=== PATIENT | female | born 1980 | race Caucasian/White ===

== ENCOUNTER 2016-11-12 07:56 | Day surgery (SDC) | payer MEDICAID ==
[2016-11-12] MEDS ORDERED: MIDAZOLAM 2 MG/2 ML INJ ONE (09:45)
[2016-11-12] MEDS ORDERED: FENTANYL CITRATE INJ/PF 100 MCG/2 ML AMPUL ONE (09:45)
[2016-11-12] MEDS ORDERED: LIDOCAINE 2% INJ-PF (20 MG/ML) 10 ML AMPUL ONE (09:45)
[2016-11-12] MEDS ORDERED: PROPOFOL INJ 200 MG/20 ML VIAL IV ONE (09:46)
[2016-11-12] MEDS ORDERED: FENTANYL CITRATE INJ/PF 100 MCG/2 ML AMPUL IV PRN (10:21)
[2016-11-12] MEDS ORDERED: PROMETHAZINE HCL INJ 25 MG/1 ML VIAL IV PRN ×2 (10:21)
[2016-11-12] MEDS ORDERED: DIPHENHYDRAMINE HCL 50 MG/ML VIAL IV PRN (10:21)
[2016-11-12] MEDS ORDERED: ONDANSETRON HCL INJ/PF 4 MG/2 ML SDV IV PRN (10:21)
--- NOTE | 2016-11-12 10:45 | Operative Report ---
Operative Report DATE OF SURGERY: 11/12/16 Operative Report: The risks, benefits and alternatives of the procedure including risks of bleeding, patient requiring surgery are explained to the patient detail and informed consent was obtained. The patient was placed in the left lateral decubital position. Timeout was called. Propofol medications administered. A rectal examination was done which did not reveal any masses, tears or fissures. The scope was then gradually advanced all the way to the cecum. Intubation of the terminal ileum was done. Biopsies obtained. Photodocumentation was obtained prep is good. The scope was then sequentially pulled back out the interventions of the colon including the ascending colon, hepatic flexure, transverse colon, splenic flexure, descending colon and finally to the rectosigmoid portions of the colon. Retroflexion maneuver was performed. The risks benefits and alternatives of the procedure explained to the patient in detail and informed consent is obtained. A GIF Olympus video scope was inserted into the patient's mouth and hypopharynx, the esophagus is identified intubated and insufflated, the scope was then advanced through the esophagus stomach and duodenum, retroflexion maneuver is done, the esophagus stomach and first and second portions of the duodenum examined PREOPERATIVE DIAGNOSIS: Epigastric pain. Change of bowel habits POSTOPERATIVE DIAGNOSIS: Random biopsies taken terminal ileum without Crohn's disease. Right side: Biopsies taken to rule out microscopic, lymphocytic, collagenous colitis. Esophagitis versus Ordoñez's biopsies obtained. 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 No anastomotic ulcer. No inflammation noted. OPERATION: Colonoscopy with biopsy. EGD with biopsy SURGEON: MIYA OSPINA ANESTHESIA: LMAC TISSUE REMOVED OR ALTERED: As noted above. COMPLICATIONS: None. ESTIMATED BLOOD LOSS: None. INTRAOPERATIVE FINDINGS: No masses, AVMs, diverticulosis noted in the colon. PROCEDURE: Patient tolerated the procedure well. No immediate postprocedure complications are noted. Patient discharged in good condition. Discharge date 11/12/2016. Discharge diet: Regular. Discharge activity: Regular. 2-3 week follow-up to discuss findings. Patient is instructed to call the office or proceed to the emergency room should there be any further problems or questions. We will wait on biopsies.
[2016-11-12 13:56] VITALS: BP 110/81
== END 2016-11-12 12:15 | disposition home or self-care (01) ==
LOC: OROUT 07:56
PROVIDERS: ATTEND Internal Medicine Gastroenterology
PROC: 0DBB8ZX Excision of Ileum, Via Natural or Artificial Opening Endoscopic, Diagnostic (ICD-10-PCS; 2016-11-12)
PROC: 0DBF8ZX Excision of Right Large Intestine, Via Natural or Artificial Opening Endoscopic, Diagnostic (ICD-10-PCS; 2016-11-12)
PROC: 0DB68ZX Excision of Stomach, Via Natural or Artificial Opening Endoscopic, Diagnostic (ICD-10-PCS; principal; 2016-11-12 09:30)
PROC: 0DB58ZX Excision of Esophagus, Via Natural or Artificial Opening Endoscopic, Diagnostic (ICD-10-PCS; 2016-11-12 09:30)
DX: K29.50 Unspecified chronic gastritis without bleeding (principal); B96.81 Helicobacter pylori [H. pylori] as the cause of diseases classified elsewhere; K62.89 Other specified diseases of anus and rectum; K64.8 Other hemorrhoids; Z98.84 Bariatric surgery status
CPT/HCPCS: 43239; 45380; 81025; 88342 ×2; 88305 ×2; J2250; J3010; J2704; J3490; 740

== ENCOUNTER 2017-11-03 00:21 | Emergency (ER) | payer MEDICAID ==
[2017-11-03] MEDS ORDERED: METOCLOPRAMIDE HCL INJ/PF 10 MG/2 ML SDV IV ONE (00:35)
[2017-11-03] MEDS ORDERED: DIPHENHYDRAMINE HCL 50 MG/ML VIAL IV ONE (00:35)
[2017-11-03] MEDS ORDERED: NORMAL SALINE 1000 ML 1,000 ML IV ONE (00:36)
[2017-11-03] MEDS ORDERED: DOXYCYCLINE HYCLATE 100 MG TABLET PO ONE (00:36)
[2017-11-03] MEDS ORDERED: KETOROLAC TROMETHAMINE INJ/PF 30 MG/1 ML SDV IV ONE (00:36)
--- NOTE | 2017-11-03 00:39 | ER Document Report ---
ED General - General Stated Complaint: BLOOD PRESSURE ISSUES Time Seen by Provider: 11/03/17 00:26 Notes: Patient is a 36-year-old female presents with complaint of a headache. She has a history of migraine headaches and says this feels exactly like her typical headaches. She said there is no difference between this headache in her previous migraines. Patient said the headache is over the frontal part of her head. She says it came on gradually and then became much worse tonight. Some nausea. No vomiting. She has tingling into her fingers and toes which she says is normal with her migraines. She took Maxalt but it did not help. She therefore came to ER. No recent trauma or injuries to her head. Patient second complaint is that she has a small area of redness over the left medial region. She says she has had several times in the past. She says sometimes to resolve on their own and sometimes they do require incision and drainage. She denies any associated fevers. Patient is currently on her menstrual period. She says there is no chance that she could be at this time. TRAVEL OUTSIDE OF THE [place] IN LAST 30 DAYS: No - Related Data Allergies/Adverse Reactions: No Known Allergies Allergy (Unverified 11/12/16 08:32) Past Medical History - Social History Smoking Status: Unknown if Ever Smoked Frequency of alcohol use: None Drug Abuse: None Family History: Reviewed & Not Pertinent - Past Medical History Cardiac Medical History: Denies: Hx Coronary Artery Disease, Hx Heart Attack, Hx Hypertension Pulmonary Medical History: Denies: Hx Asthma, Hx Bronchitis, Hx COPD, Hx Pneumonia Neurological Medical History: Denies: Hx Cerebrovascular Accident, Hx Seizures Musculoskeltal Medical History: Denies Hx Arthritis - Immunizations Hx Diphtheria, Pertussis, Tetanus Vaccination: Yes Review of Systems - Review of Systems Notes: My Normal Review Basic REVIEW OF SYSTEMS: CONSTITUTIONAL : Denies fever, chills, or sweats. Denies recent illness. EENT: Denies eye, ear, throat, or mouth pain or symptoms. Denies nasal or sinus congestion. GASTROINTESTINAL: Denies abdominal pain. some nausea. No vomiting. GENITOURINARY: Denies difficulty urinating, painful urination, burning, frequency, or blood in urine. MUSCULOSKELETAL: Denies neck or back pain or joint pain or swelling. SKIN: Redness and swelling to left gluteal region. NEUROLOGICAL: Denies altered mental status or loss of consciousness. Has a headache. Denies weakness or paralysis or loss of use of either side. Denies problems with gait or speech. Denies sensory or motor loss. ALL OTHER SYSTEMS REVIEWED AND NEGATIVE. Physical Exam - Vital signs Vitals: Temp Pulse Resp BP Pulse Ox 98.4 F 69 18 130/88 H 97 11/03/17 01:08 11/03/17 01:08 11/03/17 01:08 11/03/17 01:08 11/03/17 01:08 - Notes Notes: General Appearance: Well nourished, alert, cooperative, no acute distress, mild to moderate obvious discomfort. Vitals: reviewed, See vital signs table. Head: no swelling or tenderness to the head Eyes: PERRL, EOMI, Conjuctiva clear Mouth: No decreasd moisture Throat: No tonsillar inflammation, No airway obstruction, No lymphadenopathy Lungs: No wheezing, No rales, No rhonci, No accessory muscle use, good air exchange bilaterally. Heart: Normal rate, Regular rythm, No murmur, no rub Abdomen: Normal BS, soft, No rigidity, No abdominal tenderness, No guarding, no rebound, Extremities: strength 5/5 in all extremities, good pulses in all extremities, no swelling or tenderness in the extremities, no edema. Skin: Patient has small area of cellulitis with what appears to be 2 small infected hair follicles. There is no significant induration or fluctuance associated with this area. No drainable abscess at this time. Area of redness approximately 2 cm in diameter. This area is over the very proximal inner left thigh. It does not extend into the genitalia or rectal area. Neuro: speech clear, oriented x 3, normal affect, responds appropriately to questions. Cranial nerves II through XII are intact. Distal sensation intact. Normal gait. Normal coordination of movements. Good strength in all 4 extremities. Course - Re-evaluation Re-evalutation: 11/03/17 02:06 Patient's headache is completely resolved. She feels much improved. Patient does have a small area of cellulitis which appears to be from an infected hair follicle on the left very proximal inner thigh. There is no area of fluctuance or induration. There is no need for incision drainage at this time. I will place her on Bactrim and Keflex. I informed her that if there is any spreading or redness or increasing swelling or any induration she must return to ER immediately. Patient agrees with plan will be discharged home. I do not suspect her headache is related to subarachnoid hemorrhage and that the headache was gradual in onset and not maximal in onset. Also the patient says headache feels exactly like her previous migraines. Dictation of this chart was performed using voice recognition software; therefore, there may be some unintended grammatical errors. 11/03/17 02:12 - Vital Signs Vital signs: Temp Pulse Resp BP Pulse Ox 98.4 F 69 18 130/88 H 97 11/03/17 01:08 11/03/17 01:08 11/03/17 01:08 11/03/17 01:08 11/03/17 01:08 Discharge - Discharge Clinical Impression: Headache Qualifiers: Headache type: unspecified Headache chronicity pattern: acute headache Cellulitis Qualifiers: Site of cellulitis: extremity Site of cellulitis of extremity: lower extremity Laterality: left Qualified Code(s): L03.116 - Cellulitis of left lower limb Condition: Good Disposition: HOME, SELF-CARE Additional Instructions: I have written a prescription for Compazine. If your Maxalt does not relieve your headache, please take 50mg of Benadryl with 1 tablet of the Compazine. Do not drive after taking this medication as it will make you sleepy. I have prescribed you two antibiotics to treat the area of infection that you have on your very inner left thigh. Currently there is no sign of abscess. Should have a low threshold to return to the ER immediately if you have any spreading of redness, any increasing swelling, or any concerns that you have developed an abscess. Please follow-up with a doctor in 2 days to have this area rechecked. Prescriptions: Cephalexin Monohydrate [Keflex 500 mg Capsule] 500 mg PO Q6H 7 Days capsule Prochlorperazine Maleate [Compazine 10 mg Tablet] 10 mg PO ASDIR PRN #10 tablet PRN Reason: Sulfamethoxazole/Trimethoprim [Bactrim Ds Tablet] 1 each PO BID #14 tablet Forms: Return to Work Referrals: GILES DAMIAN MD [Primary Care Provider] - 11/04/17
[2017-11-03 02:35] VITALS: BP 111/75
== END 2017-11-03 02:31 | disposition home or self-care (01) ==
LOC: ER 00:21
DX: L03.116 Cellulitis of left lower limb (principal); R51 Headache
CPT/HCPCS: 99284; 96361; 96374; 96375; J1200; J3490; J1885; J2765; J7030

== ENCOUNTER → 2018-12-05 | Outpatient (CLI) | payer MEDICAID ==
[~2018-12-05] MED LIST: AMINOPHYLLINE INJ/PF 250 MG/10 ML SDV IV ONE; REGADENOSON INJ 0.4 MG/5 ML DISP.SYRIN IV ONE
--- NOTE | 2018-12-06 09:25 | RADIOLOGY REPORT ---
STRESS TEST REPORT PATIENT NAME: JEWEL SIDHU ROOM#: DATE OF SERVICE: 12/05/2018 AGE: 37Y ORDER#: [id number] REFERRING MD: JENNIFER PARKS M.D. PROCEDURE PERFORMED: Rest/stress single isotope Cardiolite SPECT imaging with IV Lexiscan stress and gated SPECT imaging. INDICATION: Chest pain. CLINICAL HISTORY: This is a 37-year-old female with no known coronary artery disease but has cardiac risk factors of hypertension, smoking, and family history of [place]. Current symptomatology includes chest pains. REPORT The patient received IV Lexiscan 0.4 mg infused over 10 seconds. The resting heart rate was 81 bpm and increased to 148 bpm at end infusion due to the patient's severe anxiety. The resting blood pressure was 155/91 and was stable at 121/72 at end infusion. The patient had symptoms of panicking, tachycardia, and shortness of breath. This eventually subsided with the help of IV aminophylline 75 mg. The resting 12-lead EKG showed normal sinus rhythm at 81 bpm, nonspecific ST/T changes in the anterolateral and the anteroseptal leads. At end infusion, increased ST depression was seen in all the leads secondary to her tachycardia. The patient complained of mild chest tightness and shortness of breath, and she was panicking the whole time, long after she was reversed with aminophylline. Myocardial perfusion imaging was performed at rest 60 minutes following the injection of 10.89 mCi of Cardiolite. Ten seconds after the IV Lexiscan injection, the patient was injected with 30.4 mCi of Cardiolite, then flushed. Gated post-stress tomographic imaging was performed 60 minutes after stress injection. SUMMARY OF FINDINGS/IMPRESSION: The overall quality of the study is poor. This is due to the patient's breast prosthesis attenuating the images. Attenuation correction software deployed. The left ventricular cavity is noted to be normal in size on both the rest and stress studies. There is no evidence of abnormal transient ischemic dilatation of the left ventricle. The TID ratio was normal at 1.07. SPECT images showed a small area of mild reversible ischemia in the apex and the basal inferoseptal wall. There is also a small area of mild fixed perfusion defect in the basal anterior wall as well. Gated SPECT imaging showed reduced motion contraction in the anterior septal wall, anterior wall, and basal inferoseptal wall. The left ventricular ejection fraction was calculated to be 51%. IMPRESSION: Myocardial perfusion imaging is abnormal, quality poor due to breast prosthesis attenuation. There is a small area of mild reversible perfusion in the apex and basal inferoseptal wall. There is a small area of mild fixed perfusion defect in the basal anterior wall. Overall left ventricular systolic function is normal at 51% with reduced motion/ contraction noted in the anteroseptal wall, anterior wall, and basal inferoseptal wall. No prior study for comparison. RECOMMENDATION: Begin optimal medical management of the patient's coronary artery risk factors. Trial of sublingual nitroglycerin for her atypical chest pains. Consider cardiac catheterization if chest pain is uncontrolled. This is due to the fact that the patient has significant emotional overlay of her symptoms and that eventual cardiac catheterization will be needed to clarify whether or not she truly has coronary artery disease so that she does not need to make frequent trips to the emergency room for atypical chest pains unnecessarily down the road. INTERPRETING PHYSICIAN: JENNIFER PARKS M.D. /: [id number] TT: [id number] ID: [id number] /: [id number] TD: [id number] JOB: [id number] cc:Marlon GLASS M.D. > MTDD
== END ==
LOC: RAD 06:25
PROVIDERS: ATTEND Internal Medicine Cardiovascular Disease
DX: R07.9 Chest pain, unspecified (principal); I10 Essential (primary) hypertension; F17.200 Nicotine dependence, unspecified, uncomplicated
CPT/HCPCS: 93017; 78452; A9500; J2785; J0280; Q9969

== ENCOUNTER → 2019-01-19 | Outpatient (CLI) | payer MEDICAID ==
[2019-01-19 12:20] LABS: HEMATOCRIT 43.8 % (36.0-47.0); HEMOGLOBIN 14.9 g/dL (12.0-15.5); MEAN CORPUSCULAR HEMOGLOBIN 29.6 pg (27.0-33.4); MEAN CORPUSCULAR VOLUME 87 fl (80-97); PLATELET COUNT 245 10^3/uL (150-450); RED BLOOD COUNT 5.03 10^6/uL (3.72-5.28); RED CELL DISTRIBUTION WIDTH 13.7 % (11.5-14.0)
[2019-01-19 12:34] LABS: INTERNATIONAL RATION (INR) 1.18; PROTHROMBIN TIME 15.1 SEC (11.4-15.4)
[2019-01-19 12:35] LABS: PARTIAL THROMBOPLASTIN TIME 32.6 SEC (23.5-35.8)
[2019-01-19 12:51] LABS: ANION GAP 6 (5-19); BLOOD UREA NITROGEN 18 mg/dL (7-20); CALCIUM 9.3 mg/dL (8.4-10.2); CARBON DIOXIDE 28 mmol/L (22-30); CHLORIDE 106 mmol/L (98-107); GLUCOSE 99 mg/dL (75-110); POTASSIUM 4.5 mmol/L (3.6-5.0)
== END ==
LOC: OD 11:49
PROVIDERS: ATTEND Physician Assistant
DX: Z01.810 Encounter for preprocedural cardiovascular examination (principal); R07.9 Chest pain, unspecified; R07.89 Other chest pain; Z79.01 Long term (current) use of anticoagulants
CPT/HCPCS: 36415; 80048; 85027; 85610; 85730

== ENCOUNTER → 2019-02-21 | Outpatient (CLI) | payer MEDICAID ==
[2019-02-21 13:34] LABS: HEMATOCRIT 41.9 % (36.0-47.0); MEAN CORPUSCULAR HEMOGLOBIN 29.6 pg (27.0-33.4); MEAN CORPUSCULAR HGB CONC 33.5 g/dL (32.0-36.0); MEAN CORPUSCULAR VOLUME 88 fl (80-97); PLATELET COUNT 230 10^3/uL (150-450); RED BLOOD COUNT 4.74 10^6/uL (3.72-5.28); RED CELL DISTRIBUTION WIDTH 13.9 % (11.5-14.0); WHITE BLOOD COUNT 7.2 10^3/uL (4.0-10.5)
[2019-02-21 13:39] LABS: INTERNATIONAL RATION (INR) 1.18; PROTHROMBIN TIME 15.1 SEC (11.4-15.4)
[2019-02-21 13:40] LABS: PARTIAL THROMBOPLASTIN TIME 31.5 SEC (23.5-35.8)
[2019-02-21 13:53] LABS: ANION GAP 7 (5-19); BLOOD UREA NITROGEN 15 mg/dL (7-20); CALCIUM 9.2 mg/dL (8.4-10.2); CARBON DIOXIDE 28 mmol/L (22-30); CHLORIDE 105 mmol/L (98-107); GLUCOSE 89 mg/dL (75-110); POTASSIUM 4.3 mmol/L (3.6-5.0)
== END ==
LOC: OD 11:44
PROVIDERS: ATTEND Physician Assistant
DX: Z01.810 Encounter for preprocedural cardiovascular examination (principal); R07.9 Chest pain, unspecified; R07.89 Other chest pain; Z79.01 Long term (current) use of anticoagulants
CPT/HCPCS: 36415; 80048; 84703; 85027; 85610; 85730

== ENCOUNTER → 2019-04-02 | Outpatient (CLI) | payer MEDICAID ==
--- NOTE | 2019-04-02 14:24 | RADIOLOGY REPORT (SQ) ---
EXAM DESCRIPTION: T SPINE AP/LAT COMPLETED DATE/TIME: 04/02/2019 1:40 pm REASON FOR STUDY: PAIN IN THORACIC SPINE (M54.6) M54.6 PAIN IN THORACIC SPINE M54.2 CERVICALGIA M5 4.5 LOW BACK PAIN COMPARISON: None. NUMBER OF VIEWS: Two views. TECHNIQUE: AP and lateral radiographic images acquired of the thoracic spine. LIMITATIONS: None. FINDINGS: MINERALIZATION: Normal. ALIGNMENT: Slight scoliosis upper thoracic spine. VERTEBRAE: No fracture or bone lesion. Maintained height, normal segmentation. DISCS: No significant loss of height or significant narrowing. No large osteophytes. HARDWARE: None in the spine. MEDIASTINUM AND SOFT TISSUES: Normal heart size and aortic contour. No soft tissue abnormality. VISUALIZED LUNG VERMA: Clear. OTHER: Multiple fine wire surgical sutures and clips at the gastroesophageal junction and left upper quadrant of the abdomen. Prior cholecystectomy. Bilateral breast implants suggested. IMPRESSION: 1. No acute osseous findings. TECHNICAL DOCUMENTATION: JOB ID: [id number] [employer]- All Rights Reserved Reading location - IP/workstation name: [email or web address]
--- NOTE | 2019-04-02 14:27 | RADIOLOGY REPORT (SQ) ---
EXAM DESCRIPTION: L SPINE 2 VIEWS COMPLETED DATE/TIME: 04/02/2019 1:40 pm REASON FOR STUDY: LOW BACK PAIN (M54.5) M54.6 PAIN IN THORACIC SPINE M54.2 CERVICALGIA M54.5 LOW BACK PAIN COMPARISON: None. NUMBER OF VIEWS: Two views. TECHNIQUE: AP and lateral radiographic images acquired of the lumbar spine. LIMITATIONS: None. FINDINGS: MINERALIZATION: Normal. SEGMENTATION: Normal. No transitional anatomy. ALIGNMENT: Normal. VERTEBRAE: Maintained height. No fracture or worrisome bone lesion. DISCS: Preserved height. No significant osteophytes or end plate irregularity. POSTERIOR ELEMENTS: Pedicles and facets are intact. No pars defect or posterior arch defects. HARDWARE: Post surgical changes with hardware at L5-S1. PARASPINAL SOFT TISSUES: Normal. PELVIS: Intact as visualized. No fractures or worrisome bone lesions. SI joints intact. OTHER: Multiple surgical metallic clips left side of the abdomen. Prior cholecystectomy. IMPRESSION: 1. Post surgical changes L5-S 1. No acute osseous findings. TECHNICAL DOCUMENTATION: JOB ID: [id number] [employer]- All Rights Reserved Reading location - IP/workstation name: [email or web address]
--- NOTE | 2019-04-02 14:28 | RADIOLOGY REPORT (SQ) ---
EXAM DESCRIPTION: L SPINE FLEX/EXT ONLY COMPLETED DATE/TIME: 04/02/2019 1:40 pm REASON FOR STUDY: LOW BACK PAIN (M54.5) M54.6 PAIN IN THORACIC SPINE M54.2 CERVICALGIA M54.5 LOW BACK PAIN COMPARISON: None. TECHNIQUE: Lateral flexion and extension radiographs of the spine. NUMBER OF VIEWS: Two views. LIMITATIONS: None. FINDINGS: This examination is read in conjunction with the lumbar spine AP and lateral images perfor [facility] on the same date. Normal alignment, maintained throughout flexion and extension. No abnormal mo tion. OTHER: No other significant finding. IMPRESSION: 1. NO RADIOGRAPHIC EVIDENCE OF ABNORMAL MOTION. TECHNICAL DOCUMENTATION: JOB ID: [id number] [employer]- All Rights Reserved Reading location - IP/workstation name: [email or web address]
--- NOTE | 2019-04-02 14:31 | RADIOLOGY REPORT (SQ) ---
EXAM DESCRIPTION: CERV SP 4 OR 5 VIEWS COMPLETED DATE/TIME: 04/02/2019 1:40 pm REASON FOR STUDY: CERVICALGIA (M54.2) M54.6 PAIN IN THORACIC SPINE M54.2 CERVICALGIA M54.5 LOW BA CK PAIN COMPARISON: None. NUMBER OF VIEWS: Five views. TECHNIQUE: AP, lateral, obliques and odontoid radiographic images acquired of the cervical spine. LIMITATIONS: None. FINDINGS: MINERALIZATION: Normal. ALIGNMENT: Normal. FLEXION/EXTENSION: No instability identified. VERTEBRAE: Vertebral bodies of normal height. DISCS: No significant osteophytes or sclerosis. Disc height maintained. FORAMINA: No osteophytes or foraminal narrowing. LATERAL AND POSTERIOR ELEMENTS: Facets, lateral masses and spinous processes without significant find ings. HARDWARE: None in the spine. SOFT TISSUES: No masses or calcifications. Lung apices clear. OTHER: No other significant finding. IMPRESSION: 1. No SIGNIFICANT RADIOGRAPHIC FINDING IN THE CERVICAL SPINE. 2. No instability on flexion/ extension. TECHNICAL DOCUMENTATION: JOB ID: [id number] [employer]- All Rights Reserved Reading location - IP/workstation name: [email or web address]
== END ==
LOC: RAD 12:09
PROVIDERS: ATTEND Physician Assistant
DX: M54.6 Pain in thoracic spine (principal); M54.2 Cervicalgia; M54.5 Low back pain
CPT/HCPCS: 72050; 72070; 72100; 72120

== ENCOUNTER → 2019-05-01 | Outpatient (CLI) | payer MEDICAID ==
--- NOTE | 2019-05-01 11:59 | RADIOLOGY REPORT (SQ) ---
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 Coronal T2/HASTE imaging. CONTRAST TYPE AND DOSE: 10 mL Dotarem. RENAL FUNCTION: Not indicated. ACR Type II contrast agent associated with few, if any, unconfounded cases of NSF LIMITATIONS: None. FINDINGS: VISUALIZED UPPER ABDOMEN: Limited evaluation. No acute or suspicious findings suggested. SEGMENTATION: No transitional anatomy. The lowest well-developed disc space is labeled L5-S1. ALIGNMENT: Anatomic. VERTEBRAE: Intact. No fractures. BONE MARROW: Normal. No marrow replacement or reactive changes. DISC SIGNAL: Normal. No significant abnormal signal or loss of height. POSTERIOR ELEMENTS: Generally intact. No pars defect evident. HARDWARE: Anterior hardware at L5-S1 with screws into the vertebral bodies. CORD AND CONUS: Normal in size and signal intensity. Conus at the L2 level. SOFT TISSUES: No aortic aneurysm seen. No bulky retroperitoneal adenopathy or mass. No paraspinal mas s or fluid. L1-L2: No significant spinal stenosis or exit foraminal stenosis. L2-L3: No significant spinal stenosis or exit foraminal stenosis. L3-L4: Minimal concentric disc bulging with no central canal or foraminal stenosis. L4-L5: No significant spinal stenosis or exit foraminal stenosis. L5-S1: No significant spinal stenosis or exit foraminal stenosis. LOWER THORACIC: Incompletely imaged. No stenosis seen. SACRUM: Visualized upper sacrum intact. ENHANCEMENT: No abnormal enhancement. OTHER: No other significant findings. IMPRESSION: Surgical changes. No acute finding. No explanation for the patient's pain. TECHNICAL DOCUMENTATION: JOB ID: [id number]- All Rights Reserved Reading location - IP/workstation name: [email or web address]
--- NOTE | 2019-05-01 12:32 | RADIOLOGY REPORT (SQ) ---
EXAM DESCRIPTION: MRI CERVICAL SPINE WITHOUT COMPLETED DATE/TIME: 05/01/2019 11:27 am REASON FOR STUDY: (M54.2)CERVICALGIA M96.1 POSTLAMINECTOMY SYNDROME, NOT ELSEWHERE CLASSIFIED M54.2 CERVICALGIA COMPARISON: None. TECHNIQUE: Sagittal and Axial imaging includes T1, T2, STIR and gradient echo sequences. LIMITATIONS: Patient movement. FINDINGS: ALIGNMENT: Straightening of the lordotic curve. VERTEBRAE: Intact. BONE MARROW: Normal. No marrow replacement or reactive changes. DISCS: Desiccation multiple levels. HARDWARE: None in the spine. CORD AND BASE OF BRAIN: Normal in size and signal intensity. SOFT TISSUES: No soft tissue masses. C1-C2: No significant spinal stenosis. C2-C3: No significant spinal stenosis or exit foraminal stenosis. C3-C4: Mild spinal stenosis due to small central disc herniation. Mild neural foraminal narrowing bi laterally. C4-C5: Mild spinal stenosis due to disc bulge and congenital stenosis. C5-C6: Mild spinal stenosis due to left paracentral disc herniation. Disc contacts the exiting C6 ne rve root. C6-C7: Mild spinal stenosis due to disc bulge and congenital stenosis. C7-T1: No significant spinal stenosis or exit foraminal stenosis. UPPER THORACIC: Incompletely imaged. No significant spinal stenosis or exit foraminal stenosis. OTHER: No other significant finding. 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 Small disc herniations at C3- 4 and C5-6 as described above. TECHNICAL DOCUMENTATION: JOB ID: [id number] [employer] All Rights Reserved Reading location - IP/workstation name: [email or web address]
== END ==
LOC: RAD 09:59
PROVIDERS: ATTEND Physician Assistant
DX: M50.222 Other cervical disc displacement at C5-C6 level (principal); M48.02 Spinal stenosis, cervical region; M96.1 Postlaminectomy syndrome, not elsewhere classified
CPT/HCPCS: 72158; 72141; A9576